=== PATIENT | female | born 1940 | race Caucasian/White ===

== ENCOUNTER → 2018-06-03 | Outpatient (CLI) | payer OTHER, BC ==
[~2018-06-03] VITALS: Ht 160 cm; Wt 88.5 kg
[2018-06-03] VITALS (8 sets, daily range): BP systolic 136–165; BP diastolic 69–80
[~2018-06-03] MED LIST: AMITRIPTYLINE H75 M1; ASPIRIN EC81 M1; ATENOLOL 25 MG25 M1; CENTRUM SILVER1 EAC4; CIPROFLOXACIN500 M1 PO; DILTIAZEM 24HR180 MG; DIOVAN160 MG PO; ESTRACE1 MG; FISH OIL 1,0001 EAC8; FLAGYL500 MG PO; GLUCOPHAGE500 MG; GLUMETZA500; HYDROCHLOROTHIA25 M1; LEVAQUIN 500 M500 M2; LEVAQUIN 500 M500 MG PO; MIRAPEX0.5 MG; NORCO 5-325 TA1 EACH PO; PHENERGAN 25 MG25 M1 PO; PREMARIN0.45 MG; SIMVASTATIN40 MG; TIROSINT100 MCG; TUSSIONEX PENN473 ML PO; VENTOLIN HFA 1818 GM INH
[2018-06-03 09:13] LABS: APTT 23.3 Seconds (24.5-32.8); PROTIME 10.2 Seconds (9.3-11.4)
--- NOTE | 2018-06-03 11:36 | NUR ---
RECIEVED PATIENT FOR RECOVERY S/P SYNOVIAL CYST ASP/ FINESTRATION, BA X2 TO LOWER BACK C/D/I, VSS, DENIES PAIN, DENIES NEEDS, SL REMOVED, D/C INSTRUCTIONS GIVEN TO PATIENT AND , V/U, STABLE FOR DISCHARGE
== END ==
LOC: CAT 08:23
PROVIDERS: Radiology Diagnostic Radiology
DX: M71.38 Other bursal cyst, other site (principal); I10 Essential (primary) hypertension; E11.9 Type 2 diabetes mellitus without complications; E78.5 Hyperlipidemia, unspecified; E66.09 Other obesity due to excess calories; Z90.710 Acquired absence of both cervix and uterus; Z98.890 Other specified postprocedural states; Z79.899 Other long term (current) drug therapy; Z90.5 Acquired absence of kidney; Z79.01 Long term (current) use of anticoagulants; Z91.041 Radiographic dye allergy status; Z88.8 Allergy status to other drugs, medicaments and biological substances; Z79.82 Long term (current) use of aspirin

== ENCOUNTER → 2019-10-24 | Outpatient (CLI) | payer OTHER, BC ==
[~2019-10-24] VITALS: Ht 162.6 cm; Wt 83.6 kg
[~2019-10-24] MED LIST changes: +ACETAMINOPHEN PO; +ALLER-FEX180 MG PO; +ELIQUIS5 MG PO; +ESTRACE0.5 MG PO; +FIBER THERAPY500 MG PO; -FISH OIL 1,0001 EAC8; +FLECAINIDE ACET50 M2 PO; +FUROSEMIDE 20 M20 MG PO; +IRON PO; +MIRALAX119 GM PO; +NEURONTIN100 MG PO; +NORCO 5-325 TA1 EAC1 PO; +OMEGA 3 FISH O1 EACH PO; +SENIOR PROBIOT1 EACH PO; +SPIRONOLACTONE25 MG PO; +TOPROL XL50 MG PO; +ZOFRAN4 MG PO
[2019-10-24 12:38] VITALS: BP 157/70
--- NOTE | 2019-10-24 12:57 | NUR ---
Pain Clinic Assessment: 1. History of Osteoarthritis: LOW BACK BOTH THUMBS History of Rheumatoid Arthritis: 2. Height: 5 ft. 4 in. 162.6 cm. Weight: 184.2 lb. oz. 83.553 kg. Patient's BMI: 31.6 3. Vital Signs: BP: 157/70 Pulse: 94 Resp: 18 Temp: 02 Sat: 100 ECG Mon: 4. Pain Intensity: 6 5. Fall Risk: Dizziness: N Needs help standing or walking: N Fallen in the last 3 months: N Fall risk comments: 6. Patient on Blood Thinner: ALEXANDROQUIS 7. History of Hypertension: Y 8. Opioid Therapy greater than 6 weeks: Y Opiate Contract Signed: 9. Risk Assessment Tool Provided: 0-LOW RISK 10. Functional Assessment Tool: 11. Recreational Drug Use: Never Drug Type: Tobacco Use: Never Smoker Tobacco Type: Amount or Packs/day: How Many Years: Alcohol Use: No Frequency: Quant:
--- NOTE | 2019-10-31 16:07 | HPC ---
[facility] [place] [address] PAIN MANAGEMENT CONSULTATION Name: MARJAN SANTO Room #: REG [facility]WIN [facility]#: [id number] Admission: 10/24/19 Attend Phys: Rickie Das DO Discharge: Date of : 40 Report #: [id number] THIS REPORT FOR: cc: Carrie Davila MD, Hillary N. MD Johnson, James E. DO ~ DATE OF SERVICE: 10/24/2019 REFERRING PHYSICIAN: Delia Watson MD CHIEF COMPLAINT: Low back pain. HISTORY OF PRESENT ILLNESS: As you know, the patient is a very pleasant 79-year-old female who reports longstanding history of low back pain that has been present since 04/09/2017. The patient has sought evaluation and treatment from multiple pain physicians. She has undergone treatment for facet arthropathy pain, ultimately undergoing radiofrequency lesioning with Dr. Selina Faith that was performed in January of 2018. The patient reports this to be unhelpful. She was then subsequently referred to see another pain physician, Dr. Gonzalez, who has been following the patient since that time. The last the patient saw Dr. Kim was 4 weeks ago. She has received multiple injections from Dr. Gonzalez, but does not know the types, but indicated improvement in symptoms with those therapies. She has undergone physical therapy twice a week for 3-4 months without much in a way of benefit. She reports that she takes 2 hydrocodone 5/325 per day. These were initiated by her primary care physician, continued by her pain management physician while they were performing procedures and she was then referred back to her PCP to continue the therapy. She reports good efficacy with hydrocodone 2 tablets per day. She denies side effects of sleepiness, disorientation, confusion and mental slowing. The patient has been referred to our service to discuss whether or not there are other treatment options available or whether or not opioid medications as appropriate. The patient indicates today pain is periodic. She describes the pain as aching, places current pain score 6/10, daily average of 5-6/10, worst pain has been is 9/10. The patient states that activities exacerbate symptoms, sitting and pain medications tend to improve pain. She has been referred to our service to discuss treatment options for facet arthropathy pain. PAST MEDICAL HISTORY: 1. Hypertension. 2. Hyperlipidemia. 3. Hypothyroidism. 4. History of lymphedema. 5. Diabetes mellitus type 2. 6. Neuropathy. [address] [address] PAIN MANAGEMENT CONSULTATION Name: MARJAN SANTO Room #: REG CLI Janet#: [id number] Admission: 10/24/19 Attend Phys: Rickie Das DO Discharge: Date of : 40 Report #: [id number] 7. Atrial fibrillation, poorly controlled. 8. Lumbar scoliosis. 9. Lumbar spondylosis without radicular symptoms. 10. History of diverticulitis. PAST SURGICAL HISTORY: 1. Left partial nephrectomy for angiolipoma. 2. Surgery for the prolapsed bladder. 3. Hysterectomy. 4. Cystocele repair and urethral sling. 5. Hammertoe repair. 6. Radiofrequency lesioning of the lumbar spine medial branch nerves. 7. CT-guided synovial cyst fenestration. SOCIAL HISTORY: The patient denies tobacco, alcohol, IV or illicit drug use. 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 She is not in litigation in regards to pain. She is unaccompanied at today's visit. REVIEW OF SYSTEMS: Positive for weight gain, wearing corrective eyewear, hearing loss with tinnitus, blurred and double vision, cataracts, heart trouble, atrial fibrillation with chronic anticoagulation, constipation, nocturia, memory and confusion issues, thyroid disease, non-insulin dependent diabetes, bleeding and bruising tendencies, chronic back pain. All other review of systems negative per 12-point review of systems other than those listed in history of present illness. Pain impact score of 40/70 indicating moderate interference of daily activities secondary to pain. ALLERGIES: SUDAFED AND BETADINE. CURRENT MEDICATIONS: Lactobacillus 1 tab per day, flecainide 50 mg once a day, ondansetron 4 mg once a day, acetaminophen 3000 mg once a day, hydrocodone 5/325 one tab b.i.d. p.r.n., Eliquis 5 mg per day, FiberCon 1 tab per day, iron supplement 65 mg per day, MiraLax 17 g per day, metoprolol 50 mg once a day, spironolactone 25 mg once a day, gabapentin 100 mg twice a day, estradiol 0.5 mg once a day, fexofenadine 180 mg once a day, furosemide 20 mg once a day, omega-3 fish oil 1 tab per day, simvastatin 40 mg per day, pramipexole 0.5 mg once a day, multivitamin 1 tab per day, levothyroxine 100 mcg per day. IMAGING: MRI lumbar spine obtained 11/26/2018 shows T12-L1 unremarkable, L1-L2 unremarkable. L2-L3 shows moderate bilateral facet degenerative changes consistent with age. L3-L4, no focal disk protrusion, central canal and neural foramen are patent. There are moderate bilateral facet degenerative changes typical for age. L4-L5, no focal disk protrusion, central canal is maintained. Mild lateral recess and foraminal encroachment. Bilateral facet spurring and degenerative changes with ligamentum flavum hypertrophy. No changes from [facility] [address] [place] [address] PAIN MANAGEMENT CONSULTATION Name: MARJAN SANTO Room #: REG [facility]#: [id number] Admission: 10/24/19 Attend Phys: Rickie Das DO Discharge: Date of : 40 Report #: [id number] previous examination 1 year ago. L5-S1 shows bqasmgyd-gl-fsoeds bilateral facet degenerative changes. This is stable. PQRS: The patient has known arthritic changes of the lumbar spine and bilateral thumbs. No rheumatoid arthritis. She is placing pain intensity today at 6/10. She is not a fall risk, has not had a fall in last 3 months. She is on Eliquis and cannot come off the medication. She is treated for hypertension. She is on chronic opioids, has a low opioid addiction based on our assessment tool. Pain impact score 40/70, moderate interference of daily activities secondary to pain. PHYSICAL EXAMINATION: VITAL SIGNS: Blood pressure 157/70, pulse is 94, respiratory rate 18 and unlabored. The patient is 100% on room air. Height 5 feet 4 inches tall, weight 184.2 pounds and BMI calculated 31.6. GENERAL: Well-developed, well-nourished, well-hydrated exogenously obese 79-year-old female appearing stated age, pain is rated today around 6/10. HEENT: Normocephalic, atraumatic. Pupils equal, round, reactive to light. Extraocular muscles are intact. NEUROLOGIC: Speech fluent. The patient deemed a good historian. LUNGS: Clear, no wheezes, rhonchi or rales. CARDIOVASCULAR: Irregularly irregular. No appreciable gallop, no rub. ABDOMEN: Soft, obese. Bowel sounds are present. EXTREMITIES: Show no clubbing, no cyanosis, no edema. MUSCULOSKELETAL: The patient has some palpatory tenderness over the paraspinal musculature of lower lumbar spine. No spinous process tenderness. Muscle bulk and tone equal and symmetrical in lower extremities, though deconditioning noted bilaterally. Gait appears normal. Stance is slightly forward flexed lumbar spine with mild loss of lordotic curvature. Seated straight leg raising negative. Supine straight leg raising negative. Jamel's test is negative. Modified Gaenslen's positive for axial low back pain. Ankle clonus negative. Babinski is negative. Lumbar provocation testing including rotation, lateral, flexion and extension all exacerbate axial back pain. ASSESSMENT: 1. Lumbosacral spondylosis without radiculopathy. 2. Facet arthropathy of the lumbar spine. 3. Lumbar degeneration. 4. Chronic intractable pain. PLAN: 1. Based on today's physical exam and history the patient has provided, the description the patient uses in regards to pain as well as location of symptoms and those factors that provocate her symptoms, likely source of the patient's pain is facet generated. I am pleased to advise the patient the recent MRI shows no significant central canal or neural foraminal stenosis. We discussed with the patient that the options for treatment for facet arthropathy pain are [address] [address] PAIN MANAGEMENT CONSULTATION Name: EDGARDOLAURIE DUMONTYCE [place] Room #: REG [facility].#: [id number] Admission: 10/24/19 Attend Phys: Rickie Das DO Discharge: Date of : 40 Report #: [id number] the following. We discussed physical therapy, stretching exercise, core strengthening and concerted effort at weight loss, these were all the goal standard treatment for care and needs to be continued and promoted. We discussed medication management, but unfortunately the patient cannot be on the medication of choice, antiinflammatories due to her current use of Eliquis. This leaves her with the hydrocodone that is apparently working well for pain control per the patient. We discussed intra-articular facet injections, medial branch nerve blocks and radiofrequency lesioning which appears to have been provided by not only Dr. Faith but also Dr. Kim as recent as Apr. when the patient went on Eliquis. Unfortunately, since the patient is on Eliquis and cannot come off the medication, no interventional treatments can be offered. Ultimately, the patient could consider surgical options if she wishes to do so, though at this point given the minimal findings, I would not recommend that treatment course. After reviewing the risks and benefits of all proposed treatment options, the patient determined she would like to remain on medications. 2. We have reviewed the patient's medication list, it does appear that she is doing well with the hydrocodone 5/325. I see no reason not to continue the patient on that medication as anti-inflammatories cannot be used in her case. We suggest that she remain on this therapy as it appears to be working well. These medications were initiated by another physician and could be continued by that physician with appropriate monitoring of the patient, consistent with the standard of care and regulations of the [place]. 3. We have had the patient sign a release of information, so that we can determine the treatments that the patient has had at Dr. Gonzalez to determine if there is any remaining interventional therapies that could be offered that might provide good analgesic benefit. We have sent the release of information to Dr. Gonzalez's office today. We are hopeful to hve the information to review as soon as possible so that we can determine if interventional treatments might be appropriate once the patient comes off her Eliquis. 2. We will see the patient back in followup visit on an as-needed basis to discuss interventional treatments. She appears to be treated appropriately at this time. She is taking low-dose opioid with no side effects and good benefit. She is taking only 10 mg of hydrocodone a day, an extremely low dose of therapy and appropriate given her inability to take anti-inflammatory therapy. 3. We wish to thank Dr. Delia Watson for the referral of this patient to our clinic. We are hopeful the information provided here will help direct her care as she is treated for her facet arthropathy pain. As indicated in the review of the MRI findings of her imaging are age related normal findings and would be best treated conservatively. Again, we wish to thank [place] [address] PAIN MANAGEMENT CONSULTATION Name: ROBINARELYMARJAN Room #: REG CLMega Gonzales#: [id number] Admission: 10/24/19 Attend Phys: Rickie Das DO Discharge: Date of : 40 Report #: [id number] see the patient in consultation. We will keep you apprised if the interventional treatments are recommended. <ELECTRONICALLY SIGNED> By: Rickie Das DO 10/31/19 1607 [id number] Rickie Das DO /nt
== END ==
LOC: PAIN 10-17 09:00
DX: M47.817 Spondylosis without myelopathy or radiculopathy, lumbosacral region (principal); G89.29 Other chronic pain; M51.36 Other intervertebral disc degeneration, lumbar region; M46.96 Unspecified inflammatory spondylopathy, lumbar region; I10 Essential (primary) hypertension; E78.5 Hyperlipidemia, unspecified; E03.9 Hypothyroidism, unspecified; R59.0 Localized enlarged lymph nodes; E11.9 Type 2 diabetes mellitus without complications; I48.91 Unspecified atrial fibrillation; Z87.19 Personal history of other diseases of the digestive system; Z98.890 Other specified postprocedural states; Z79.899 Other long term (current) drug therapy

== ENCOUNTER → 2020-02-21 | Outpatient (CLI) | payer OTHER, BC ==
[~2020-02-21] VITALS: Ht 162.6 cm; Wt 91.5 kg
[~2020-02-21] MED LIST changes: +VITAMIN B12-FO1 EAC1 PO
[2020-02-21 13:57] VITALS: BP 147/67
--- NOTE | 2020-02-21 14:23 | NUR ---
Pain Clinic Assessment: 1. History of Osteoarthritis: LOW BACK BOTH THUMBS History of Rheumatoid Arthritis: 2. Height: 5 ft. 4 in. 162.6 cm. Weight: 201.8 lb. oz. 91.536 kg. Patient's BMI: 34.6 3. Vital Signs: BP: 147/67 Pulse: 78 Resp: 16 Temp: 02 Sat: 100 ECG Mon: 4. Pain Intensity: 4-5 5. Fall Risk: Dizziness: N Needs help standing or walking: N Fallen in the last 3 months: N Fall risk comments: 6. Patient on Blood Thinner: GÉNESISIS 7. History of Hypertension: Y 8. Opioid Therapy greater than 6 weeks: Y Opiate Contract Signed: 9. Risk Assessment Tool Provided: 0-LOW RISK 10. Functional Assessment Tool: 45/ 11. Recreational Drug Use: Never Drug Type: Tobacco Use: Never Smoker Tobacco Type: Amount or Packs/day: How Many Years: Alcohol Use: No Frequency: Quant:
--- NOTE | 2020-02-27 12:44 | HPC ---
[facility] [place] [address] PAIN MANAGEMENT CONSULTATION Name: MARJAN SANTO Room #: REG [facility]#: [id number] Admission: 02/21/20 Attend Phys: Rickie Das DO Discharge: Date of : 40 Report #: [id number] THIS REPORT FOR: cc: Delia Watson MD,Rickie Kemp MD, DO ~ DATE OF SERVICE: 02/22/2020 REFERRING PHYSICIAN: Delia Watson MD CHIEF COMPLAINT: Low back pain. HISTORY OF PRESENT ILLNESS: As you know, the patient is a very pleasant 79-year-old female who reports longstanding history of low back pain that has been present since 04/09/2017. The patient has been followed by multiple different physicians most recent Dr. Starr, with [facility] from where she was receiving injection therapies and receiving opioid medication management. It was noted in the patient's chart from Dr. Starr that refills of hydrocodone 5/325 were provided on a b.i.d. basis with a titration off the medication recommended. The patient is no longer following Dr. Starr as of last visit of 10/25/2019. The patient was referred to our clinic to discuss interventional treatments. She was seen in consultation per the request of Dr. Delia Watson on 10/24/2019 where she was diagnosed with facet arthropathy pain and provided recommendations for injection therapies. The patient states that she had undergone with Dr. Faith, radiofrequency lesioning of medial branch nerves without benefit. She chose at that time to consider her options. She returns today in followup visit stating she continues to experience pain similar to when she had a synovial cyst reoccurrence. She has had fenestration of the synovial cyst in the past with good efficacy. She wishes to discuss interventional treatments today and other treatment options. She is placing pain score 4-5/10. ALLERGIES: SUDAFED and BETADINE. CURRENT MEDICATIONS: Cyanocobalamin 1 tab per day, lactobacillus 1 tab per day, flecainide 50 mg once a day, ondansetron 4 mg p.r.n., acetaminophen up to 3000 mg per day, hydrocodone/acetaminophen 5/325 one tab every 6 hours p.r.n. for pain, Eliquis 5 mg b.i.d., fiber supplement 500 mg once a day, MiraLax 17 grams per day, metoprolol 50 mg per day, spironolactone 25 mg per day, gabapentin 100 mg twice a day, Estrace 0.5 mg once a day, fexofenadine 180 mg per day, furosemide 20 mg per day, omega-3 fish oil 1 tab per day, simvastatin 40 mg per day, Mirapex 0.5 mg p.o. at bedtime, multivitamin 1 tab per day, levothyroxine 100 mcg per day. SOCIAL HISTORY: The patient denies tobacco, alcohol, IV or illicit drug use. 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 PQRS: The patient has arthritic changes of the lumbar spine, bilateral thumbs and bilateral hips. No rheumatoid arthritis. She is placing pain intensity score at 4-5/10. She is not at a fall risk nor has she had a fall in last 3 months. She remains on blood thinners in the form of Eliquis taking twice a day. She is treated for hypertension. She is on chronic opioids being provided by her primary care physician. She has a low opioid addiction potential. Pain impact is 45/70, moderate to severe interference of daily activities secondary to pain. PHYSICAL EXAMINATION: VITAL SIGNS: Blood pressure 147/67, pulse 78, respiratory rate 16 and unlabored. The patient is 100% on room air. Height 5 feet 4 inches tall, weight 201.8 pounds, BMI calculated 34.6. GENERAL: Well-developed, well-nourished, well-hydrated exogenously obese 79-year-old female appearing stated age, pain is rated anywhere from 4-5/10. HEENT: Normocephalic, atraumatic. Pupils equal, round and reactive. Speech is fluent. EXTREMITIES: Show no clubbing, no cyanosis, and no edema. MUSCULOSKELETAL: Lower extremity strength remains symmetrical, but deconditioned. Gait appears normal. Stance is slightly forward flexed lumbar spine, mild loss of lordotic curvature. Seated straight leg raising is negative. Supine straight leg raising is negative. Jamel's test is negative. Modified Gaenslen's positive for axial low back pain. Lumbar provocation testing including rotation, lateral flexion and extension all exacerbate symptoms. No dermatomal distribution. ASSESSMENT: 1. Lumbosacral spondylosis without radiculopathy. 2. Facet arthropathy of the lumbar spine. 3. History of recurrent synovial cyst. 4. Lumbar degeneration. 5. Chronic intractable pain. PLAN: 1. The patient returns today in followup visit, describing increasing pain, now rating pain at 4-5/10. She believes that her cyst that formed in the past from one of the synovial joint has reoccurred. She has had recurrence of the cyst in the past. We would recommend further evaluation with imaging studies. She is amenable to undergo imaging, but is limited due to her pacemaker. We will have the patient to undergo CT image of the lumbar spine to confirm the pathology and to evaluate whether or not the synovial cyst has returned. If the synovial cyst has returned, we would recommend fenestration with Interventional Radiology. We will be able to report on the findings of the CT examination once it is complete [address] [address] PAIN MANAGEMENT CONSULTATION Name: MARJAN SANTO Room #: REG CORWIN Gonzales#: [id number] Admission: 02/21/20 Attend Phys: Rickie Das DO Discharge: Date of : 40 Report #: [id number] and advised the patient of treatment options. 2. The patient indicates she does very well with the use of hydrocodone. She is taking 1 tab in the morning, 1 tab at midday with good efficacy. At this juncture, we do not have any reason why we would recommend discontinuing this therapy. The patient will continue to take the medication as directed through the prescribing physician. We have advised the patient that we are not taking on any new opioid medication management patients and will not be providing long-term opioid therapy as it is not appropriate for her pathology. 3. We will see the patient back in followup visit where we will review the CT examination and determine interventional treatment options that might be available to help the patient with her ongoing axial back pain. Again, we will keep you apprised of her response to treatment once we have a chance to review this CT examination. 4. The patient was provided refill for CT of the lumbar spine without contrast. The patient will fill this request as quickly as possible and return to review those findings. <ELECTRONICALLY SIGNED> By: Rickie Das DO 02/27/20 1244 [id number] Rickie Das DO /nt
== END ==
LOC: PAIN 07:02
PROVIDERS: ATTEND Anesthesiology Pain Medicine
DX: M47.817 Spondylosis without myelopathy or radiculopathy, lumbosacral region (principal); G89.29 Other chronic pain; Z87.39 Personal history of other diseases of the musculoskeletal system and connective tissue; Z88.8 Allergy status to other drugs, medicaments and biological substances; Z79.899 Other long term (current) drug therapy

== ENCOUNTER → 2020-03-06 | Outpatient (CLI) | payer OTHER, BC | LOC: CAT 10:04 | PROVIDERS: ATTEND Anesthesiology Pain Medicine | DX: M47.26 Other spondylosis with radiculopathy, lumbar region (principal); M48.061 Spinal stenosis, lumbar region without neurogenic claudication; M25.78 Osteophyte, vertebrae; M16.0 Bilateral primary osteoarthritis of hip ==

== ENCOUNTER → 2020-04-02 | Outpatient (CLI) | payer OTHER, BC ==
[~2020-04-02] VITALS: Ht 162.6 cm; Wt 85.8 kg
--- NOTE | ~2020-04-02 | HPC ---
[facility] [address] PAIN MANAGEMENT CONSULTATION Name: MARJAN SANTO [facility] [id number] Admission: 04/02/20 Attend Phys: Rickie Das DO Discharge: Date of : 40 Report #: [id number] CC: Rickie Watson MD DATE OF SERVICE: 04/02/2020 REFERRING PHYSICIAN: Delia Watson MD CHIEF COMPLAINT: Low back pain. HISTORY OF PRESENT ILLNESS: As you know, the patient is a very pleasant 79-year-old female who was seen in consultation on 10/31/2019 per the request of Dr. Watson where she was diagnosed with facet arthropathy of the lumbar spine and progressively worsening spinal stenosis. At that visit, we discussed treatment options and she remained with conservative treatment course. She returned to our clinic on 02/21/2020 where she was complaining of increasing pain and bilateral lower extremity symptoms. She had been undergoing treatment with [facility] where she was receiving injections and medication management. She was referred to our clinic to discuss options for treatment. She presented to us with very old imaging that provided us little benefit in regards to what was occurring at this time. We advised the patient to undergo CT of the lumbar spine for further evaluation, so that we can help direct care. She returns today in followup visit with her to discuss the findings of her CT examination. She is placing her current pain score 7-8/10. She is having difficulty with any type of activities including standing, walking, she cannot sit and she does report that medications do improve her baseline pain. She has been brought in today to review her CT examination and discuss treatment options. ALLERGIES: SUDAFED AND BETADINE. CURRENT MEDICATIONS: Cyanocobalamin with folic acid 1 tab per day, lactobacillus 1 tab per day, flecainide 50 mg once a day, ondansetron 4 mg every 8 hours p.r.n., acetaminophen 3000 mg once a day, hydrocodone/acetaminophen 5/325 one tab every 6 hours p.r.n. for pain, Eliquis 5 mg per day, FiberCon 1 tab per day, MiraLax 17 grams per day, metoprolol 50 mg once a day, spironolactone 25 mg per day, gabapentin 100 mg once a day esterase 0.5 mg once a day, Allerfex 180 mg once a day, furosemide 20 mg once a day, omega-3 fish oil 1 tablet per day, simvastatin 40 mg per day, Mirapex 0.5 mg once a day, multivitamin 1 tab per day, levothyroxine 100 mcg per day. SOCIAL HISTORY: The patient denies tobacco, alcohol, IV or illicit drug use. 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 She is accompanied by her present in room today. IMAGING: CT of the lumbar spine obtained 03/06/2020 shows degenerative changes throughout the lumbar spine, most prevalent at the L3-L4 and L4-L5 levels. She has severe central canal stenosis both at the L4-L5 and L3-L4 level consistent with the patient's symptoms. PHYSICAL EXAMINATION: PQRS: The patient has known arthritic changes of the lumbar spine, bilateral thumbs and hips. No rheumatoid arthritis. She is placing pain intensity today at 8/10. She is not a fall risk nor she had a fall in last 3 months. She is on blood thinners in the form of Eliquis for which she has taken her medication today. She is treated for hypertension. She is on chronic opioids, but has a low opiate addiction potential based on our assessment tool. Pain impact is 45/70, severe interference of daily activities secondary to pain. PHYSICAL EXAMINATION: VITAL SIGNS: Blood pressure 157/78, pulse 86, respiratory rate 14 and unlabored. The patient is 100% on room air. Height 5 feet 4 inches tall, weight 189.2 pounds, BMI calculated 32.5. GENERAL: Well-developed, well-nourished, well-hydrated 79-year-old female, appears stated age, pain is rated today 7-8/10. HEENT: Normocephalic, atraumatic. Pupils equal, round and reactive. Speech is fluent. EXTREMITIES: Show no clubbing, no cyanosis. No appreciable edema. MUSCULOSKELETAL: Gait appears normal again today. Stance is slightly forward flexed lumbar spine with mild loss of lordotic curvature. Seated straight leg raising negative. Supine straight leg raising negative. Jamel's test negative. Modified Gaenslen's positive for axial low back pain. Ankle clonus negative. ASSESSMENT: 1. Symptomatic lumbar radiculopathy. 2. Severe multilevel central canal stenosis. 3. Displacement of lumbar intervertebral disk with radiculopathy. 4. Lumbosacral spondylosis with radiculopathy. 5. Facet arthropathy of the lumbar spine. 6. Lumbar degeneration. 7. Chronic intractable pain. PLAN: 1. The patient returns today in followup visit where we have taken over 22 minutes of time to review the patient's recent CT examination and correlating to her current symptoms. It does appear the patient has 2 levels of spinal stenosis at the L3-L4 and L4-L5 level that is classified as severe in nature. We discussed with the patient that the options of treatment would be as follows: We discussed the following with the patient today. We discussed physical therapy, stretching exercises, core strengthening as a treatment course. We discussed medication management with escalating doses of neuropathic medications. She is currently taking gabapentin 100 mg dose, which is subtherapeutic. This medication needs to be escalated quite quickly to reach some efficacy to help with the patient's pain. We have to watch for side effects with its use. We discussed possibly undergoing next in the series of epidural injections as she has had injections in the past, but unfortunately, this began to lose efficacy. I do not have the information from the physician who is providing these injections in the past, so I cannot comment on whether or not they were placed in the right positions. We discussed spinal cord stimulator therapy is an option of treatment, which would provide her analgesic benefit for a temporary time frame as her spinal stenosis is multifactorial and will continue to be problematic. We also discussed surgical decompression. After reviewing the risks and benefits of all proposed treatment options, the patient chose to consider her treatment course. She does wish to undergo a lumbar epidural injection, which will require to come off the Eliquis in preparation for that procedure. 2. The patient will discontinue her Eliquis in preparation for an epidural injection next Wednesday. Her last dose of Eliquis will be Wednesday night. This will leave her off the medication 3 days as per LEONARDO guidelines for anticoagulation with neuraxial blockades. The patient will remain off the medication until our visit. She will undergo the epidural injection and then return to the use of the medication. 3. The patient is going to consider surgical options. I have advised the patient to follow up with her PCP in regards to referrals for that issue if it is necessary. 4. We will keep you apprised of the patient's response to epidural injection to address her severe central canal stenosis at L3-L4 and L4-L5. We are hopeful the patient will see good and prolonged benefit. By: [id number] Rickie Das DO /nt
[2020-04-02 10:04] VITALS: BP 157/78
--- NOTE | 2020-04-02 10:11 | NUR ---
Pain Clinic Assessment: 1. History of Osteoarthritis: LOW BACK BOTH THUMBS History of Rheumatoid Arthritis: Not Applicable 2. Height: 5 ft. 4 in. 162.6 cm. Weight: 189.2 lb. oz. 85.821 kg. Patient's BMI: 32.5 3. Vital Signs: BP: 157/78 Pulse: 86 Resp: 14 Temp: 02 Sat: 100 ECG Mon: 4. Pain Intensity: 7-8 5. Fall Risk: Dizziness: N Needs help standing or walking: N Fallen in the last 3 months: N Fall risk comments: 6. Patient on Blood Thinner: TOMY 7. History of Hypertension: Y 8. Opioid Therapy greater than 6 weeks: Y Opiate Contract Signed: 9. Risk Assessment Tool Provided: 0-LOW RISK 10. Functional Assessment Tool: 45 11. Recreational Drug Use: Never Drug Type: Tobacco Use: Never Smoker Tobacco Type: Amount or Packs/day: How Many Years: Alcohol Use: No Frequency: Quant:
== END ==
LOC: PAIN 06:51
PROVIDERS: ATTEND Anesthesiology Pain Medicine
DX: M47.27 Other spondylosis with radiculopathy, lumbosacral region (principal); M51.16 Intervertebral disc disorders with radiculopathy, lumbar region; M48.02 Spinal stenosis, cervical region; G89.29 Other chronic pain; Z88.8 Allergy status to other drugs, medicaments and biological substances; Z79.899 Other long term (current) drug therapy

== ENCOUNTER → 2020-04-10 | Outpatient (CLI) | payer OTHER, BC ==
[~2020-04-10] VITALS: Ht 162.6 cm; Wt 93.0 kg
--- NOTE | ~2020-04-10 | HPC ---
[address] [place] [address] PAIN MANAGEMENT CONSULTATION Name: MARJAN SANTO Room #: REG [facility]#: [id number] Admission: 04/10/20 Attend Phys: Rickie Das DO Discharge: Date of : 40 Report #: [id number] CC: Rickie Watson DATE OF SERVICE: 04/10/2020 REFERRING PHYSICIAN: Dr. Delia Watson. CHIEF COMPLAINT: Low back pain. HISTORY OF PRESENT ILLNESS: As you know, the patient is a very pleasant 79-year-old female seen in consultation 10/31/2019 per the request of Dr. Watson, diagnosed with facet arthropathy of the lumbar spine, progressively worsening spinal stenosis. We saw the patient back in followup visit, 02/21/2020 where we discussed her case in more detail. We initially trialed conservative treatment options, but noted no significant improvement in symptoms. We had her ultimately undergo a CT of the lumbar spine for further evaluation. She returned in followup visit on 04/02/[address] findings, which show severe central canal stenosis at L3-L4 and L4-L5 consistent with the patient's symptoms. She has come off her Eliquis in preparation for a lumbar epidural injection today. She is placing pain score of 5/10. States her pain as aching and intermittent in sensation, exacerbated with activity, standing, walking, improves with sitting and medications. She returns today in followup visit requesting to undergo lumbar epidural injection under fluoroscopic guidance. ALLERGIES: SULFA, SUDAFED and BETADINE. CURRENT MEDICATIONS: See extensive list in chart. SOCIAL HISTORY: The patient denies tobacco, alcohol, IV or illicit drug use. 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 She is unaccompanied at today's visit. IMAGING: No new imaging available. PQRS: The patient has known arthritic changes of the bilateral shoulders, bilateral hips and lumbar spine. No rheumatoid arthritis. She is placing pain intensity today at 5/10. She is not a fall risk, has not had a fall in last 3 months. She is on blood thinners, but had discontinued the medication in preparation for today's procedure. She is treated for hypertension. She is not on any chronic opioids, has a low opiate addiction potential. Pain impact today is rated at 45 of 70 indicating severe interference of daily activities secondary to pain. PHYSICAL EXAMINATION: VITAL SIGNS: Blood pressure 167/70, pulse is 95, respiratory rate 16 and unlabored, the patient is 99% on room air. Height 5 feet 4 inches tall, weight 205 pounds, BMI calculated 35.2. GENERAL: Well-developed, well-nourished, well-hydrated exogenously obese 79-year-old female appearing stated age. She is placing current pain score 5/10. HEENT: Normocephalic, atraumatic. Pupils equal, round and reactive. EXTREMITIES: Show no clubbing, no cyanosis. No appreciable edema. MUSCULOSKELETAL: Lower extremity strength equal and symmetrical 5/5. Deconditioning noted bilaterally. Seated straight leg raising negative. Supine straight leg raising negative. Jamel's test is negative. Modified Gaenslen's positive for axial low back pain. ASSESSMENT: 1. Symptomatic lumbar radiculopathy. 2. Severe multilevel central canal stenosis of the lumbar spine. 3. Displacement of lumbar intervertebral disk with radiculopathy. 4. Lumbosacral spondylosis with radiculopathy. 5. Facet arthropathy of the lumbar spine. 6. Lumbar degeneration. 7. Chronic intractable pain. PLAN: 1. The patient returns today in followup visit to undergo lumbar epidural injection under fluoroscopic guidance. She has been off her Eliquis for the past 3 days per guidelines to undergo a lumbar epidural injection under fluoroscopic guidance. The patient has been advised of the risks and benefits of this procedure. These risks include but are not necessarily limited to bleeding, bruising, infection, worsening pain, no relief of pain, also risk of temporary or permanent muscle weakness, temporary or permanent nerve damage, possible paralysis and . The patient states she understood and wished to proceed. 2. No medication changes made at today's visit. The patient will continue current medical therapy as prior prescribed. 3. We will see the patient back in followup visit on an as needed basis for possible next in the series of epidural injections. We have set the patient a tentative appointment for 1 month for further evaluation. We will keep you apprised of response to treatment. DESCRIPTION OF PROCEDURE: L5-S1 interlaminar epidural steroid injection under fluoroscopic guidance. This is the lumbar epidural injection procedure of the first series that the patient is undergoing. After obtaining written consent, the patient was taken back to the fluoroscopy suite, placed in a prone position with pillow under the abdomen to decrease lumbar lordosis. The skin overlying the lumbosacral area was then prepped and draped in aseptic fashion. The L5-S1 vertebral interspace was then identified by AP fluoroscopy. The skin and subcutaneous tissue overlying the target site of injection was anesthetized with 3 mL 1% lidocaine. A 20-gauge 4-1/2-inch Tuohy needle was then advanced under fluoroscopic guidance towards the epidural space using a right parasagittal approach. The epidural space was identified using loss of resistance to air technique. After negative aspiration for heme or cerebrospinal fluid, a total of 1 mL of Omnipaque was injected. A lumbar epidurogram was confirmed using both AP and lateral fluoroscopy. After negative aspiration for heme or cerebrospinal fluid, 5 mL of a solution containing 2 mL of 40 mg/mL, 80 mL total triamcinolone along with 3 mL of lidocaine, 1% was injected in increments. Contrast spread was noted post epidural space. The needle was then retracted approximately half way and needle tract flushed with 1 mL of 1% lidocaine. Needle was then removed. There were no apparent sensory or motor deficits in the lower extremity following the procedure. A sterile bandage was placed over the injection site. The heart rate, pulse, oximetry and blood pressure were continuously monitored after the procedure. There were no complications. The patient tolerated the procedure well and was carefully escorted to the recovery room in stable condition. There were no apparent complications. After meeting discharge criteria, the patient was then discharged home. By: [id number] Rickie Das DO /nico
[2020-04-10 13:42] VITALS: BP 167/70
--- NOTE | 2020-04-10 13:44 | NUR ---
Pain Clinic Assessment: 1. History of Osteoarthritis: LOW BACK BOTH THUMBS History of Rheumatoid Arthritis: Not Applicable 2. Height: 5 ft. 4 in. 162.6 cm. Weight: 205.0 lb. oz. 92.988 kg. Patient's BMI: 35.2 3. Vital Signs: BP: 167/70 Pulse: 95 Resp: 16 Temp: 02 Sat: 99 ECG Mon: 4. Pain Intensity: 5 5. Fall Risk: Dizziness: N Needs help standing or walking: N Fallen in the last 3 months: N Fall risk comments: 6. Patient on Blood Thinner: GÉNESISIS 7. History of Hypertension: Y 8. Opioid Therapy greater than 6 weeks: Y Opiate Contract Signed: 9. Risk Assessment Tool Provided: 0-LOW RISK 10. Functional Assessment Tool: 11. Recreational Drug Use: Never Drug Type: Tobacco Use: Never Smoker Tobacco Type: Amount or Packs/day: How Many Years: Alcohol Use: No Frequency: Quant:
== END | disposition home or self-care (01) ==
LOC: PAIN 06:58
PROVIDERS: ATTEND Anesthesiology Pain Medicine
DX: M51.16 Intervertebral disc disorders with radiculopathy, lumbar region (principal); M48.061 Spinal stenosis, lumbar region without neurogenic claudication; M47.27 Other spondylosis with radiculopathy, lumbosacral region; M47.26 Other spondylosis with radiculopathy, lumbar region; G89.29 Other chronic pain; I10 Essential (primary) hypertension; M19.90 Unspecified osteoarthritis, unspecified site; Z98.890 Other specified postprocedural states; Z79.899 Other long term (current) drug therapy; Z88.2 Allergy status to sulfonamides; Z88.8 Allergy status to other drugs, medicaments and biological substances

== ENCOUNTER → 2020-05-15 | Outpatient (CLI) | payer OTHER, BC ==
[~2020-05-15] VITALS: Ht 162.6 cm; Wt 96.7 kg
--- NOTE | ~2020-05-15 | HPC ---
[facility] [place] [address] PAIN MANAGEMENT CONSULTATION Name: MARJAN SANTO Room #: [facility] Cindy.#: [id number] Admission: 05/15/20 Attend Phys: Rickie Das DO Discharge: Date of : 40 Report #: [id number] THIS REPORT FOR: cc: Delia Watson MD,Rickie Kemp MD, DO ~ CC: Rickie Watson MD DATE OF SERVICE: 05/15/2020 REFERRING PHYSICIAN: Delia Watson MD CHIEF COMPLAINT: Low back pain. HISTORY OF PRESENT ILLNESS: As you know, the patient is a very pleasant 79-year-old female seen in consultation per the request of her primary care physician, Dr. Watson on 10/24/2019 for chronic lumbar radicular symptoms and facet arthropathy pain. She was seen in our clinic and started on medication management to address ongoing pain issues as she was on anticoagulant and had not come off of medication. We saw her back in followup visit on 02/21/2020 where we made further adjustments in medication management and had the patient undergo CT imaging as it was concerned that there had been progression of symptoms above her previous surgery. She underwent imaging from a CT standpoint 03/06/2020, which showed severe central canal stenosis at L3-L4 and L4-L5. She underwent a lumbar epidural injection to address this issue on 04/10/2020 where she received 50% improvement in overall pain. Unfortunately, her symptoms have begun to return. She returns today in followup visit to begin scheduling the next in the series of epidural injections. The patient denies injury or trauma that may have led to symptom reoccurrence. ALLERGIES: PSEUDOEPHEDRINE, BETADINE. CURRENT MEDICATIONS: Cyanocobalamin, lactobacillus, flecainide, ondansetron, acetaminophen, hydrocodone, Eliquis, FiberCon, metoprolol, MiraLax, spironolactone, gabapentin, estradiol, fexofenadine, furosemide, omega-3 fish oil, simvastatin, Mirapex and levothyroxine. SOCIAL HISTORY: The patient denies tobacco, alcohol, IV or illicit drug use. She is retired, retired years ago, unaccompanied at today's visit. IMAGING: No new imaging available. PQRS: The patient has known arthritic changes of bilateral shoulders, bilateral hips and lumbar spine. No rheumatoid arthritis. [place] [address] PAIN MANAGEMENT CONSULTATION Name: MARJAN SANTO Room #: REG [facility]#: [id number] Admission: 05/15/20 Attend Phys: Rickie Das DO Discharge: Date of : 40 Report #: [id number] at 12/21. She is a fall risk, but has not had a fall in last 3 months. She is utilizing a cane for ambulation and balance. She is on blood thinners in the form of Eliquis. She is treated for hypertension. She is on chronic opioids, has a low opiate addiction potential based on our assessment tool. Pain impact 45/70, moderate to severe interference of daily activities secondary to pain. PHYSICAL EXAMINATION: VITAL SIGNS: Blood pressure 152/65, pulse 79, respiratory rate 18 and unlabored. The patient is 100% on room air. Height 5 feet 4 inches tall, weight 213.2 pounds, BMI calculated 36.6. GENERAL: Well-developed, well-nourished, well-hydrated 79-year-old female appearing stated age, pain is rated today 7/10. HEENT: Normocephalic, atraumatic. Pupils equal, round and reactive. NEUROLOGIC: Speech is fluent. The patient deemed an excellent historian. EXTREMITIES: Show no clubbing, no cyanosis, and no edema. MUSCULOSKELETAL: Lower extremity strength remains symmetrical. There is deconditioning noted bilaterally, but strength appears 5/5. Seated straight leg raising negative. Supine straight leg raising negative. Jamel's test is negative. Modified Gaenslen's positive for axial low back pain. Ankle clonus negative. Babinski is negative. Stance is slightly forward flexed lumbar spine with minimal loss of lordotic curvature. ASSESSMENT: 1. Symptomatic lumbar radiculopathy. 2. Severe central canal stenosis at L3-L4. 3. Severe central canal stenosis at L4-L5. 4. Displacement of lumbar intervertebral disk with radiculopathy. 5. Lumbosacral spondylosis with radiculopathy. 6. Facet arthropathy of the lumbar spine. 7. Lumbar degeneration. 8. Chronic intractable pain. PLAN: 1. The patient returns today in followup visit where we have discussed the efficacy of the epidural injection provided at last visit. I am pleased to advise the patient received greater than 50% improvement in overall pain with the epidural injection. She returns today in followup visit to discuss scheduling the next in the series of epidural injections as she is very pleased with response to the first treatment. She wishes to delay the injection until 05/29/2020. We have made the patient an appointment that day advising the patient she will need to discontinue her anticoagulant the Wednesday prior to the to be able to undergo the procedure in a safe manner based on LEONARDO guidelines. The patient is agreeable and will come off the medication the Wednesday prior to the . 2. No medication changes made at today's visit. The patient will continue current medical therapy as prior prescribed except for the adjustments in the [facility] [address] [place] [address] PAIN MANAGEMENT CONSULTATION Name: MARJAN SANTO [place] Room #: [facility] Cindy.#: [id number] Admission: 05/15/20 Attend Phys: Rickie Das DO Discharge: Date of : 40 Report #: [id number] Eliquis in preparation for the epidural injection on the . 3. We will keep you apprised of response to treatment as we address lumbar radiculopathy secondary to central canal stenosis. We are hopeful the patient will continue to show analgesic benefit with epidural injections. We will keep you apprised of the response of the injection planned for the . By: [id number] Rickie Das DO /nt
[2020-05-15 13:28] VITALS: BP 152/65
--- NOTE | 2020-05-15 13:42 | NUR ---
Pain Clinic Assessment: 1. History of Osteoarthritis: LOW BACK BOTH THUMBS History of Rheumatoid Arthritis: Not Applicable 2. Height: 5 ft. 4 in. 162.6 cm. Weight: 213.2 lb. oz. 96.707 kg. Patient's BMI: 36.6 3. Vital Signs: BP: 152/65 Pulse: 79 Resp: 18 Temp: 02 Sat: 100 ECG Mon: 4. Pain Intensity: 7 5. Fall Risk: Dizziness: N Needs help standing or walking: Y Fallen in the last 3 months: N Fall risk comments: 6. Patient on Blood Thinner: GÉNESISIS 7. History of Hypertension: Y 8. Opioid Therapy greater than 6 weeks: Y Opiate Contract Signed: 9. Risk Assessment Tool Provided: 0-LOW RISK 10. Functional Assessment Tool: 11. Recreational Drug Use: Never Drug Type: Tobacco Use: Never Smoker Tobacco Type: Amount or Packs/day: How Many Years: Alcohol Use: No Frequency: Quant:
== END ==
LOC: PAIN 06:46
PROVIDERS: ATTEND Anesthesiology Pain Medicine
DX: M51.16 Intervertebral disc disorders with radiculopathy, lumbar region (principal); M48.061 Spinal stenosis, lumbar region without neurogenic claudication; M47.26 Other spondylosis with radiculopathy, lumbar region; G89.4 Chronic pain syndrome

== ENCOUNTER → 2020-05-29 | Outpatient (CLI) | payer OTHER, BC ==
[~2020-05-29] VITALS: Ht 162.6 cm; Wt 98.8 kg
[~2020-05-29] MED LIST changes: +BUMETANIDE 1 MG1 M1 PO
--- NOTE | ~2020-05-29 | HPC ---
[facility] [address] [place] [address] PAIN MANAGEMENT CONSULTATION Name: MARJAN SANTO Room #: REG CORWIN YangSidneyYovaniSidney#: [id number] Admission: 05/29/20 Attend Phys: Rickie Das DO Discharge: Date of : 40 Report #: [id number] THIS REPORT FOR: cc: Delia Watson MD, Lisa A. MD Johnson, James E. DO ~ DATE OF SERVICE: 05/29/2020 CHIEF COMPLAINT: Low back pain, bilateral lower extremity pain and paresthesias. HISTORY OF PRESENT ILLNESS: As you know, the patient is a very pleasant 79-year-old female who has returned today in followup visit to undergo next in the series of lumbar epidural injections per the request of her primary care physician. As you are well aware, the patient suffers from severe central canal stenosis at L3-4 and L4-5, leading to lumbar radicular symptoms radiating down both legs. She reports today previous epidural injection gave excellent benefit, but unfortunately, her symptoms did recur. She returns today in followup visit to undergo next in the series. She denies injury or trauma that may have led to symptom development. She has had some increasing lower extremity edema and changes in medication have been made to reduce some of the swelling. She just started the medication and thus has not had any changes in her lower extremity edema to date. She is placing a pain score today 6/10. States activity exacerbates symptoms such as walking, standing and daily household activities. Sitting, medications and epidural injections tend to help. She returns today in followup visit requesting lumbar epidural injection under fluoroscopic guidance. ALLERGIES: BETADINE, PSEUDOEPHEDRINE, POVIDINE. CURRENT MEDICATIONS: Bumetanide, cyanocobalamin, lactobacillus, flecainide, ondansetron, acetaminophen, hydrocodone, Eliquis, MiraLax, metoprolol, spironolactone, gabapentin, Estrace, fexofenadine, omega-3 fish oil, simvastatin, Mirapex, multivitamin, levothyroxine. SOCIAL HISTORY: The patient denies tobacco, alcohol, IV or illicit drug use. She is retired, retired years ago, unaccompanied today. IMAGING: No new imaging available. PQRS: The patient has known arthritic changes of the bilateral shoulders, bilateral hips and lumbar spine. No rheumatoid arthritis. She is placing a pain intensity today at a level of 6/10. She is not a fall risk, has not had a fall in last 3 months, but is utilizing a 4-pronged cane for ambulation and balance. She is on Eliquis, but discontinued the medication 3 days ago in preparation for the procedure. She is treated for hypertension and is on [address] [address] PAIN MANAGEMENT CONSULTATION Name: MARJAN SANTO [place] Room #: REG CL Janet#: [id number] Admission: 05/29/20 Attend Phys: Rickie Das DO Discharge: Date of : 40 Report #: [id number] chronic opioids, has a low opiate addiction potential based on our assessment tool. Pain impact 45/70, severe interference of daily activities secondary to pain. PHYSICAL EXAMINATION: VITAL SIGNS: Blood pressure 148/71, pulse 92, respiratory rate 18 and unlabored. The patient is 99% on room air. Height 5 feet 4 inches tall, weight 217.8 pounds, BMI calculated 37.4. GENERAL: Well-developed, well-nourished, well-hydrated 79-year-old female appearing stated age. Pain is rated today 6/10. HEENT: Normocephalic, atraumatic. Pupils equal, round and reactive. Speech fluent. EXTREMITIES: Show no clubbing, no cyanosis. There is 3+ pitting edema in the lower extremities bilaterally. MUSCULOSKELETAL: Lower extremity strength is symmetrical, but deconditioned. Seated straight leg raising negative. Supine straight leg raising negative. Jamel's test is negative. Modified Gaenslen's positive for axial low back pain. Gait is antalgic. ASSESSMENT: 1. Symptomatic lumbar radiculopathy. 2. Spinal stenosis of lumbar spine at L3-4. 3. Severe central canal stenosis at L4-5. 4. Displacement of lumbar intervertebral disk with radiculopathy. 5. Lumbosacral spondylosis with radiculopathy. 6. Facet arthropathy of the lumbar spine. 7. Lumbar degeneration. 8. Chronic intractable pain. PLAN: 1. The patient returns today in followup visit to undergo lumbar epidural injection under fluoroscopic guidance. She has done very well with previous epidural injections, hopeful to see similar improvement today. She has been advised of the risks and the benefits of a lumbar epidural injection, states understood and wished to proceed. 2. No medication changes made at today's visit. The patient will continue current medical therapy as prior prescribed. 3. We plan to see the patient back in followup visit on an as needed basis for possible next in the series of epidural injections. She will restart her Eliquis this evening and continue her Eliquis as directed. PROCEDURE NOTE: DESCRIPTION OF PROCEDURE: L5-S1 interlaminar epidural steroid injection under fluoroscopic guidance. [address] [address] PAIN MANAGEMENT CONSULTATION Name: MARJAN SANTO Room #: [facility]#: [id number] Admission: 05/29/20 Attend Phys: Rickie Das DO Discharge: Date of : 40 Report #: [id number] After obtaining written consent, the patient was taken back to fluoroscopy suite, placed in prone position with pillow under abdomen to decrease lumbar lordosis. Skin overlying lumbosacral area prepped and draped in aseptic fashion. Lumbar intervertebral spaces were identified by AP fluoroscopy. Skin and subcutaneous tissue overlying target site injection anesthetized with 3 mL of 1% lidocaine. A 20-gauge 4-1/2 inch Tuohy needle advanced under fluoroscopic guidance towards the epidural space using a parasagittal approach. Epidural space identified using loss of resistance to air technique. Due to a reported ALLERGY TO IODINE, no contrast agent was used in today's procedure. Imaging confirmed the tip of the Tuohy needle within the epidural space with the lateral imaging. After negative aspiration for heme or cerebrospinal fluid, 5 mL of a solution containing 2 mL 40 mg per mL, 80 mg total triamcinolone along with 3 mL of lidocaine 1% injected slowly. Needle retracted mcc, flushed with 1 mL of 1% lidocaine and removed. Sterile bandage placed over injection site. No new motor deficits present in the lower extremity following procedure. The patient tolerated procedure well, carefully escorted to recovery room in stable condition. No apparent complications. After meeting discharge criteria, the patient discharged home. By: [id number] Rickie Das DO /nico
[2020-05-29 12:42] VITALS: BP 148/71
--- NOTE | 2020-05-29 12:51 | NUR ---
Pain Clinic Assessment: 1. History of Osteoarthritis: LOW BACK BOTH THUMBS History of Rheumatoid Arthritis: Not Applicable 2. Height: 5 ft. 4 in. 162.6 cm. Weight: 217.8 lb. oz. 98.794 kg. Patient's BMI: 37.4 3. Vital Signs: BP: 148/71 Pulse: 92 Resp: 18 Temp: 02 Sat: 99 ECG Mon: 4. Pain Intensity: 6 5. Fall Risk: Dizziness: N Needs help standing or walking: N Fallen in the last 3 months: N Fall risk comments: 6. Patient on Blood Thinner: GÉNESISIS 7. History of Hypertension: Y 8. Opioid Therapy greater than 6 weeks: Y Opiate Contract Signed: 9. Risk Assessment Tool Provided: 0-LOW RISK 10. Functional Assessment Tool: 45/ 11. Recreational Drug Use: Never Drug Type: Tobacco Use: Never Smoker Tobacco Type: Amount or Packs/day: How Many Years: Alcohol Use: No Frequency: Quant:
== END | disposition home or self-care (01) ==
LOC: PAIN 06:55
PROVIDERS: ATTEND Anesthesiology Pain Medicine
DX: M51.16 Intervertebral disc disorders with radiculopathy, lumbar region (principal); M48.061 Spinal stenosis, lumbar region without neurogenic claudication; M47.27 Other spondylosis with radiculopathy, lumbosacral region; M47.26 Other spondylosis with radiculopathy, lumbar region; G89.29 Other chronic pain; I10 Essential (primary) hypertension; M19.90 Unspecified osteoarthritis, unspecified site; Z98.890 Other specified postprocedural states; Z79.899 Other long term (current) drug therapy; Z79.891 Long term (current) use of opiate analgesic

== ENCOUNTER → 2020-08-07 | Outpatient (CLI) | payer OTHER, BC ==
[~2020-08-07] VITALS: Ht 162.6 cm; Wt 97.7 kg
--- NOTE | ~2020-08-07 | HPC ---
[facility] [place] [address] [place] [address] PAIN MANAGEMENT CONSULTATION Name: MARJAN SANTO Room #: REG CORWIN WhiteSidney#: [id number] Admission: 08/07/20 Attend Phys: Rickie Das DO Discharge: Date of : 40 Report #: [id number] THIS REPORT FOR: cc: Delia Watson MD, Lisa A. MD Johnson, James E. DO ~ DATE OF SERVICE: 08/07/2020 REFERRING PHYSICIAN: Walter Nichols MD CHIEF COMPLAINT: Low back pain, bilateral lower extremity pain. HISTORY OF PRESENT ILLNESS: As you know, the patient is a very pleasant 80-year-old female seen in consultation per the request of her primary care physician, Dr. Delia Watson on 10/24/2019 for chronic lumbar radicular symptoms and facet arthropathy pain. She was evaluated on the initial consult following up with us in February with continued pain concerning of spinal stenosis. She was sent for CT of the lumbar spine, which showed significant central canal stenosis. The severity is noted at the L3-L4 and L4-L5 level were consistent with the patient's distribution of pain. We had discussed with the patient the various treatment options we had based on the findings of her examination and imaging studies. The patient underwent epidural injections, but did not feel that they were providing long-term benefit. She returns today in followup visit to discuss other treatment options. The patient is indicating pain level of 5/10. States the pain is exacerbated with walking, standing, and any type of activities improved with sitting and medications. She describes the pain as chronic, aching, numbness and tingling when experiencing symptoms. She has returned today in followup visit to discuss treatment options. ALLERGIES: PSEUDOEPHEDRINE, BETADINE. CURRENT MEDICATIONS: Bumetanide 1 mg once a day, cyanocobalamin once a day, lactobacillus 1 tab per day, flecainide 50 mg 2 tabs b.i.d., ondansetron 4 mg p.r.n. q. 8 hours, acetaminophen 3000 mg per day, hydrocodone/acetaminophen 5/325 one tab every 6 hours p.r.n. for pain, Eliquis 5 mg b.i.d., MiraLax 17 grams p.r.n., metoprolol 50 mg once a day, spironolactone 25 mg per day, gabapentin 100 mg p.o. q.a.m., estradiol 0.5 mg once a day, fexofenadine 180 mg once a day, omega-3 fish oil 1 tab per day, simvastatin 40 mg per day, Mirapex 0.5 mg p.o. at bedtime, multivitamin 1 tab per day, and levothyroxine 100 mcg per day. IMAGING: There is no new imaging available. PQRS: The patient has known arthritic changes of bilateral shoulders, bilateral hips and lumbar spine. No rheumatoid arthritis. She is placing pain intensity today 5/10. She is a fall risk and has had a fall in last [place] [address] PAIN MANAGEMENT CONSULTATION Name: ROBINARELYMARJAN [place] Room #: REG CLI Janet#: [id number] Admission: 08/07/20 Attend Phys: Rickie Das DO Discharge: Date of : 40 Report #: [id number] tripping and falling on while getting mobilized around car causing ecchymosis to the right knee. She is on blood thinner in the form of Eliquis. She is treated for hypertension. She is on chronic opioids with a low opioid addiction potential. Pain impact is 45/70, moderate to severe interference of daily activities secondary to pain. PHYSICAL EXAMINATION: VITAL SIGNS: Blood pressure 151/62, pulse 73, respiratory rate 18 and unlabored. The patient is 98% on room air. Height 5 feet 4 inches tall, weight 215.4 pounds, BMI calculated 37.0. GENERAL: Well-developed, well-nourished, well-hydrated exogenously obese 80-year-old female appearing stated age, pain is rated today 5/10. HEENT: Normocephalic, atraumatic. Pupils equal, round and reactive, the patient is wearing a mask in compliance with COVID-19 regulations. EXTREMITIES: Show no clubbing, no cyanosis, though there is bilateral lower extremity edema that is pitting at 2+. MUSCULOSKELETAL: Lower extremity strength remains symmetrical. Deconditioning noted bilaterally. Seated straight leg raising is negative. Supine straight leg raising is negative. Jamel's test is negative. Modified Gaenslen's positive for axial low back pain. Gait is antalgic. She is using a roller walker for ambulation. ASSESSMENT: 1. Symptomatic lumbar radiculopathy. 2. Severe central canal stenosis at L3-L4. 3. Severe central canal stenosis at L4-L5. 4. Displacement of lumbar intervertebral disk with radiculopathy. 5. Lumbosacral spondylosis with radiculopathy. 6. Facet arthropathy of the lumbar spine. 7. Lumbar degeneration. 8. Chronic intractable pain. PLAN: 1. The patient returns today in followup visit indicating that she received improvement in symptoms with the epidural injections, but did not note prolonged pain resolution. She returns today in followup visit to discuss other treatment options. We discussed the following with the patient today on treatment options for lumbar radiculopathy secondary to central canal stenosis and facet arthropathy of the lumbar spine. We discussed physical therapy, stretching exercises and core strengthening along with a concerted effort at weight loss. This would improve the axial back pain. The patient is currently experiencing. It may also improve her lumbar radicular symptoms. We discussed medication management, increasing her neuropathic pain medication and providing a baseline nonsteroidal anti-inflammatory and possible addition of low dose opioids for acute pain. We [facility] [address] [place] [address] PAIN MANAGEMENT CONSULTATION Name: GALMARJAN A Room #: REG CORWIN Gonzales#: [id number] Admission: 08/07/20 Attend Phys: Rickie Das DO Discharge: Date of : 40 Report #: [id number] discussed repeating lumbar epidural injections on a more frequent basis to try to stay ahead of her symptoms. We also discussed spinal cord stimulator therapy and ultimately surgical decompression. After reviewing the risks and benefits of all proposed treatment options, the patient chose to move forward with a surgical consultation and possible surgical decompression. 2. We will be referring the patient to Neurosurgery of [facility]. We have taken the liberty of contacting the nurse practitioners at the Neurosurgery office to establish an appointment for the patient. They are going to contact us tomorrow to establish that time. We will keep the patient apprised of our progress in obtaining the evaluation. 3. The patient will obtain copies of her recent CT examination. She will be taking this with her to the appointment with Neurosurgery as quickly as we can make that appointment. I have had the patient bead picker the disc today, so it is available for review at that consultation. 4. We made no changes in the patient's medication management. We did discuss the possibility of adjusting therapies, but she is resistant to make any changes in medications at this time. We will be available to discuss this further if she does change her mind in regards to this issue including escalating doses of neuropathic medications. 5. We will see the patient back in followup visits on an as needed basis. We are hopeful the patient will be able to be seen quickly with Neurosurgery and discussed their options. We did provide the patient with information about spinal cord stimulator again today. This could be an option, though it will not change the patient's underlying pathology, could improve the patient's overall symptoms. We will keep this as a treatment option depending on the direction of surgical consultation. By: [id number] Rickie Das DO /nt
[2020-08-07 15:09] VITALS: BP 151/62
--- NOTE | 2020-08-07 15:21 | NUR ---
Pain Clinic Assessment: 1. History of Osteoarthritis: LOW BACK BOTH THUMBS History of Rheumatoid Arthritis: Not Applicable 2. Height: 5 ft. 4 in. 162.6 cm. Weight: 215.4 lb. oz. 97.705 kg. Patient's BMI: 37.0 3. Vital Signs: BP: 151/62 Pulse: 73 Resp: 18 Temp: 02 Sat: 98 ECG Mon: 4. Pain Intensity: 5 5. Fall Risk: Dizziness: N Needs help standing or walking: Y Fallen in the last 3 months: Y Fall risk comments: 6. Patient on Blood Thinner: GÉNESISIS 7. History of Hypertension: Y 8. Opioid Therapy greater than 6 weeks: Y Opiate Contract Signed: 9. Risk Assessment Tool Provided: 0-LOW RISK 10. Functional Assessment Tool: 11. Recreational Drug Use: Never Drug Type: Tobacco Use: Never Smoker Tobacco Type: Amount or Packs/day: How Many Years: Alcohol Use: No Frequency: Quant:
== END ==
LOC: PAIN 07:01
PROVIDERS: ATTEND Anesthesiology Pain Medicine
DX: M51.16 Intervertebral disc disorders with radiculopathy, lumbar region (principal); M48.061 Spinal stenosis, lumbar region without neurogenic claudication; M47.27 Other spondylosis with radiculopathy, lumbosacral region; G89.29 Other chronic pain; Z88.8 Allergy status to other drugs, medicaments and biological substances; Z79.899 Other long term (current) drug therapy

== ENCOUNTER → 2020-09-17 | Outpatient (CLI) | payer OTHER, BC ==
[~2020-09-17] VITALS: Ht 162.6 cm; Wt 92.8 kg
[2020-09-17 12:25] VITALS: BP 154/59
--- NOTE | 2020-09-17 12:31 | NUR ---
Pain Clinic Assessment: 1. History of Osteoarthritis: LOW BACK BOTH THUMBS History of Rheumatoid Arthritis: Not Applicable 2. Height: 5 ft. 4 in. 162.6 cm. Weight: 204.6 lb. oz. 92.806 kg. Patient's BMI: 35.1 3. Vital Signs: BP: 154/59 Pulse: 79 Resp: 16 Temp: 02 Sat: 97 ECG Mon: 4. Pain Intensity: 7 5. Fall Risk: Dizziness: N Needs help standing or walking: N Fallen in the last 3 months: Fall risk comments: 6. Patient on Blood Thinner: GÉNESISIS 7. History of Hypertension: Y 8. Opioid Therapy greater than 6 weeks: Y Opiate Contract Signed: 9. Risk Assessment Tool Provided: 0-LOW RISK 10. Functional Assessment Tool: 45/70 11. Recreational Drug Use: Never Drug Type: Tobacco Use: Never Smoker Tobacco Type: Amount or Packs/day: How Many Years: Alcohol Use: No Frequency: Quant:
--- NOTE | 2020-09-18 11:25 | HPC ---
[address] [address] PAIN MANAGEMENT CONSULTATION Name: MARJAN SANTO Room #: REG CORWIN WhiteSidney#: [id number] Admission: 09/17/20 Attend Phys: Rickie Das DO Discharge: Date of : 40 Report #: [id number] THIS REPORT FOR: cc: Delia Watson MD,Rickie Kemp MD, DO ~ DATE OF SERVICE: 09/17/2020 REFERRING PHYSICIAN: Delia Watson MD CHIEF COMPLAINT: Low back pain, bilateral lower extremity pain secondary to severe central canal stenosis. HISTORY OF PRESENT ILLNESS: As you know, the patient is a very pleasant 80-year-old female seen in consultation per the request of her primary care physician, Dr. Delia Watson, on 10/24/2019 for chronic lumbar radicular symptoms secondary to severe central canal stenosis. The patient has undergone injection therapies to address lumbar radiculopathy, but only noted transient improvement in symptoms. She has been referred to Neurosurgery to discuss options for treatment. They have requested the patient trial a spinal cord stimulator as a treatment option. She returns to discuss the process of beginning trial approvals to move forward with the trialing of the device itself. The patient is placing current pain score 7/10. She describes the pain as aching and intermittent, exacerbated with standing, walking and sitting, improves with medications and periodically with epidural injections. She has been referred back to our clinic by her neurosurgery team to discuss the possibility of a spinal cord stimulator trial implantation. ALLERGIES: PSEUDOEPHEDRINE, BETADINE. CURRENT MEDICATIONS: Furosemide, cyanocobalamin, lactobacillus, flecainide, ondansetron, acetaminophen, hydrocodone, Eliquis, FiberCon, MiraLax, metoprolol, spironolactone, gabapentin, Estrace, fexofenadine, omega-3 fish oil, simvastatin, pramipexole, multivitamin, and levothyroxine. SOCIAL HISTORY: The patient denies tobacco, alcohol, IV or illicit drug use. Retired, retired years ago; accompanied by her , present in room today. IMAGING: No new imaging available. PQRS: The patient has known arthritic changes of bilateral shoulders, bilateral hips, lumbar spine. No rheumatoid arthritis. She is placing pain today 12/21. She is not a fall risk, has not had a fall in last 3 months, though she is utilizing a roller walker for ambulation. The patient is on blood thinners in the form of Eliquis. She is treated for hypertension. She is on chronic opioids, has a low opioid addiction potential based [place] [address] PAIN MANAGEMENT CONSULTATION Name: MARJAN SANTO Room #: REG CLMega Gonzales#: [id number] Admission: 09/17/20 Attend Phys: Rickie Das DO Discharge: Date of : 40 Report #: [id number] impact 45 of 70, moderate to severe interference of daily activities secondary to pain. PHYSICAL EXAMINATION: VITAL SIGNS: Blood pressure 154/59, pulse 79, respiratory rate 16 and unlabored. The patient is 97% on room air. Height 5 feet 4 inches tall, weight 204.6 pounds, and BMI calculated 35.1. GENERAL: Well-developed, well-nourished, well-hydrated exogenously obese 80-year-old female appearing stated age, placing current pain score at 7/10. HEENT: Normocephalic, atraumatic. Pupils are round, and responsive. The patient is wearing a mask in compliance with COVID-19 regulations. EXTREMITIES: Show no clubbing, no cyanosis. There remains nonpitting lower extremity edema, 1+/4. MUSCULOSKELETAL: Seated straight leg raising is negative. Supine straight leg raising is negative. Jamel's test is negative. Modified Gaenslen's positive for axial low back pain. Gait appears antalgic. She has a loss of lordotic curvature in standing position. Deconditioning noted in the lower extremities. No atrophy. ASSESSMENT: 1. Symptomatic lumbar radiculopathy. 2. Severe central canal stenosis at L3-L4. 3. Severe central canal stenosis at L4-L5. 4. Displacement of lumbar intervertebral disk with radiculopathy. 5. Lumbosacral spondylosis with radiculopathy. 6. Facet arthropathy of the lumbar spine. 7. Lumbar degeneration. 8. Chronic intractable pain. PLAN: 1. The patient returns today in followup visit per the request of her neurosurgery team to discuss the possibility of beginning spinal cord stimulator trial implantation as a treatment course. It was determined that at this time, the extent of the surgery, the patient would have to address the severe central canal stenosis at L3-L4 and L4-L5 may lead to suboptimal improvement in symptoms. They wish to trial a spinal cord stimulator initially. If this is successful at alleviating symptoms, then implantation of spinal cord stimulator. She was referred back to our clinic to discuss the process of obtaining authorization to moving forward with a trial implantation. 2. The patient was provided the names of the psychiatrist that do psychiatric evaluation for spinal cord stimulator. The patient will have to complete psychiatric evaluation and be determined to have no psychopathology that would preclude us from moving forward with the device implant as a temporary testing. The patient was given the names of the psychiatrist to contact her earliest convenience. Once she has had the evaluation, she is to contact our clinic so that we can determine the results and move forward with a trial implant [address] [address] PAIN MANAGEMENT CONSULTATION Name: MARJAN SANTO [place] Room #: REG Mega White.#: [id number] Admission: 09/17/20 Attend Phys: Rickie Das DO Discharge: Date of : 40 Report #: [id number] scheduling assuming no psychopathology. 3. We spent with the patient today over 40 minutes of time discussing the spinal cord stimulator how it may affect her ongoing symptoms, but also advising the patient that this will not change the pathology that she has at the L3-L4 and L4-L5 level and that her symptoms will likely continue to progress and ultimately may need surgical decompression, but the spinal cord stimulator could provide us with good analgesic benefit as we continue to treat this patient. She is agreeable to begin with a spinal cord stimulator trial. If this is ineffective, move forward with a permanent implant in hopes of obtaining good analgesic benefit. We provided to the patient today digital and written information in regard to the [employer]tronic device, which we would recommend in this patient's case. 4. No medication changes made at today's visit. The patient will continue current medical therapy as prior prescribed. 5. The patient will contact our clinic once she has completed her psychiatric evaluation, we will then obtain those results. Assuming no psychopathology, we will then begin the process of authorization to undergo trial implantation of a spinal cord stimulator in the form of Medtronic device that I have presented to the patient today. <ELECTRONICALLY SIGNED> By: Rickie Das DO 09/18/20 1125 [id number] Rickie Das DO /nt
== END ==
LOC: PAIN 06:53
PROVIDERS: ATTEND Anesthesiology Pain Medicine
DX: M47.27 Other spondylosis with radiculopathy, lumbosacral region (principal); M79.604 Pain in right leg; M79.605 Pain in left leg; R20.2 Paresthesia of skin; G89.29 Other chronic pain; M47.26 Other spondylosis with radiculopathy, lumbar region; M48.061 Spinal stenosis, lumbar region without neurogenic claudication; F11.20 Opioid dependence, uncomplicated

== ENCOUNTER → 2020-12-04 | Outpatient (CLI) | payer OTHER, BC ==
[~2020-12-04] VITALS: Ht 162.6 cm; Wt 92.5 kg
[~2020-12-04] MED LIST changes: +NORCO5 PO
[2020-12-04 11:32] VITALS: BP 152/57
--- NOTE | 2020-12-04 11:34 | NUR ---
Pain Clinic Assessment: 1. History of Osteoarthritis: LOW BACK BOTH THUMBS History of Rheumatoid Arthritis: Not Applicable 2. Height: ft. in. cm. Weight: lb. oz. kg. Patient's BMI: 3. Vital Signs: BP: 152/57 Pulse: 80 Resp: 16 Temp: 02 Sat: 98 ECG Mon: 4. Pain Intensity: 6 5. Fall Risk: Dizziness: Needs help standing or walking: Fallen in the last 3 months: Fall risk comments: 6. Patient on Blood Thinner: TOMY 7. History of Hypertension: Y 8. Opioid Therapy greater than 6 weeks: Y Opiate Contract Signed: 9. Risk Assessment Tool Provided: 0-LOW RISK 10. Functional Assessment Tool: 45/70 11. Recreational Drug Use: Never Drug Type: Tobacco Use: Never Smoker Tobacco Type: Amount or Packs/day: How Many Years: Alcohol Use: No Frequency: Quant:
--- NOTE | 2020-12-10 07:44 | HPC ---
[facility] [place] [address] PAIN MANAGEMENT CONSULTATION Name: MARJAN SANTO [facility] #[facility] [id number] Admission: 12/04/20 Attend Phys: Rickie Das DO Discharge: Date of : 40 Report #: [id number] THIS REPORT FOR: cc: Delia Watson MD,Rickie Kemp MD, DO ~ DOC #: [id number] cc: MD Rickie Hannon DO DATE OF SERVICE: 12/04/2020 CHIEF COMPLAINT: Low back pain, bilateral lower extremity pain secondary to severe central canal stenosis. HISTORY OF PRESENT ILLNESS: As you know, the patient is a very pleasant 80-year-old female who returns today in followup visit having successfully completed spinal cord stimulator trial over the past week. She is reporting greater than 70% improvement in overall pain. She feels the device has worked very well. She is going to consider moving forward with permanent implant. She is placing her current pain score at 6/10 and she has just ambulated in from the waiting room after she turned the device off. She states that she was able to return to majority of her activities of daily living without significant pain interference. She was able to stand for long periods of time. She was able to sleep for longer periods of time. She is pleased with response and wishing to consider her options before moving forward with a permanent implant. She returns today for explantation of the device. ALLERGIES: SUDAFED, BETADINE. CURRENT MEDICATIONS: See chart. SOCIAL HISTORY: The patient denies tobacco, alcohol or IV or illicit drug use. She retired years ago, unaccompanied today. IMAGING: No new imaging available. :PQRS The patient has arthritic changes of bilateral shoulders, bilateral hips, bilateral hands and lumbar spine. No rheumatoid arthritis. Pain intensity today is rated at 6/10. She is a fall risk, but has not had a fall in last 3 months. She is on blood thinners in the form of Eliquis, but had discontinued the medication during the trial. She is treated for hypertension. She is on chronic opioids, has a low opiate addiction potential based on assessment tool. Pain impact is 45/70, severe interference of daily activities secondary to pain. PHYSICAL EXAMINATION: VITAL SIGNS: Blood pressure 152/57, pulse 80, respiratory rate 16 and [facility] [address] [place] [address] PAIN MANAGEMENT CONSULTATION Name: MARJAN SANTO Room #: REG CLI [facility]#: [id number] Admission: 12/04/20 Attend Phys: Rickie Das DO Discharge: Date of : 40 Report #: [id number] unlabored. The patient 98% on room air. GENERAL: Well-developed, well-nourished, well-hydrated exogenously obese 80-year-old female, appearing stated age, pain is rated today at 6/10. HEENT: Normocephalic, atraumatic. Pupils equal, round and responsive. EXTREMITIES: Show no clubbing, no cyanosis. Positive 2+ lower extremity nonpitting edema. MUSCULOSKELETAL: Seated straight leg raising negative. Supine straight leg raising negative. Fabere's test is negative. Modified Gaenslen's positive for axial low back pain. Gait is antalgic. ASSESSMENT: 1. Symptomatic lumbar radiculopathy. 2. Severe central canal stenosis of lumbar spine at L3-L4. 3. Severe central canal stenosis at L4-L5. 4. Displacement of lumbar intervertebral disk with radiculopathy. 5. Lumbosacral spondylosis with radiculopathy. 6. Facet arthropathy of lumbar spine. 7. Lumbar degeneration. 8. Chronic intractable pain. PLAN: 1. The patient returns today in followup visit for explantation of spinal cord stimulating device. She is considering it as an option and she has noted about 60-70% improvement in overall pain with the device itself. She wishes to consider the options over the weekend and then determine if she wishes to move forward with permanent implant. I do feel she had done very well and she would make an excellent candidate as this would reduce her reliance on opioid medication. I am concerned with the severity of her stenosis, that her medication will have to escalate quite quickly if we do not provide some type of treatment such as the spinal cord stimulator or decompression at the L4-L5 and L5-S1 levels. The patient is going to review this over the weekend and contact our clinic next week to advise whether or not she wishes to move forward with a permanent implant. 2. I have provided the patient with a prescription of hydrocodone/acetaminophen 5/325, given the patient #60 tablets, to take on an as needed basis for pain control. We have advised the patient to take the medication only when pain is intolerable, not to rely on the medication prophylactically. 3. We plan to see the patient back in followup visit on an as needed basis. She will contact our clinic next week to advise whether or not she wishes to move forward with the permanent implant. 4. Received call from patient 12/09/2020 requesting to move forward with permanent SCS implantation with Dr. Douglas. Patient will contact Dr. Douglas's office at her earliest convenience to schedule. We are pleased she did well the the [employer] device trail and hope she sees similar improvement with the permanent implantation. [facility] [address] [place] [address] PAIN MANAGEMENT CONSULTATION Name: MARJAN SANTO Room #: [facility] [id number] Admission: 12/04/20 Attend Phys: Rickie Das DO Discharge: Date of : 40 Report #: [id number] PROCEDURE NOTE DESCRIPTION OF PROCEDURE: Explantation of 2 lead spinal cord stimulator trial. The patient was placed in a seated position. We removed all of the Op-Site bandaging and Steri-Strips. There were 2 spinal cord stimulating leads in place. They had not moved from their initial positioning. The leads were explanted without difficulty. Each lead had their 8 electrodes and tips intact. Sterile bandage were placed over the patient's injection sites. There were no concerning findings on the examination of the insertion sites. No drainage, no significant erythema. She will watch for any potential increase in drainage or pain in the area. If she notes any symptoms, contact our clinic. DO RC CheemaJ/KIRBY <ELECTRONICALLY SIGNED> By: Rickie Das DO 12/10/20 0744 [id number] Rickie Das DO /nt
== END ==
LOC: PAIN 07:10
PROVIDERS: ATTEND Anesthesiology Pain Medicine
DX: G89.29 Other chronic pain (principal); M48.061 Spinal stenosis, lumbar region without neurogenic claudication; M51.16 Intervertebral disc disorders with radiculopathy, lumbar region; M47.27 Other spondylosis with radiculopathy, lumbosacral region; Z88.8 Allergy status to other drugs, medicaments and biological substances; Z79.891 Long term (current) use of opiate analgesic; Z79.899 Other long term (current) drug therapy